=== PATIENT | male | born 1990 | race Caucasian/White ===

== ENCOUNTER 2018-10-21 00:03 | Emergency (ER) | payer MEDICAID, OTHER ==
[2018-10-21] MEDS: LORAZEPAM 2 MG INJ IM (02:22)
[2018-10-21] MEDS: KETOROLAC 60 MG INJ IM (02:22)
== END 2018-10-21 03:20 | disposition home or self-care (01) ==
LOC: E/R 00:03
DX: R07.9 Chest pain, unspecified (principal)
CPT/HCPCS: 71045; 93005; 96372; 99284-25